=== PATIENT | male | born 1945 ===

== ENCOUNTER → 2019-01-23 16:38 | Outpatient (REF) | payer OTHER, SELFPAY ==
[2019-01-23 16:54] LABS: Add Manual Diff / Slide Review NO; Basophils Absolute Auto 100 /uL (0-100); Basophils Percent Auto 1.2 % (0-2); Eosinophils Absolute Auto 400 /uL (0-450); Eosinophils Percent Auto 4.6 % (2-4); Hematocrit 38.2 % (41-53); Lymphocytes Absolute Auto 3000 /uL (1100-4500); Lymphocytes Percent Auto 36.9 % (25-40); Mean Corpuscular Hemoglobin 29.3 PG (26-34); Mean Corpuscular Volume 86.1 fL (80-100); Monocytes Absolute Auto 400 /uL (0-900); Neutrophils Absolute Auto 4300 /uL (1500-7000); Neutrophils Percent Auto 52.3 % (50-75); Platelet Count 177 X10^3/uL (150-400); Red Blood Cell Count 4.43 X10^6/uL (4.5-5.9); Red Cell Distribution Width 15.2 % (11.6-14.8); White Blood Cell Count 8.1 X10^3/uL (4.5-11.0)
[2019-01-23 16:55] LABS: Alanine Aminotransferase 28 IU/L (21-72); Albumin 4.3 g/dL (3.5-5.0); Albumin Globulin Ratio 1.7 (1.0-2.8); Alkaline Phosphatase 70 U/L (38-126); Aspartate Aminotransferase 18 IU/L (17-59); BUN Creatinine Ratio 18.9 (6-22); Bilirubin Total 0.4 mg/dL (0.2-1.3); Blood Urea Nitrogen 17 mg/dL (9-20); Calcium 9.3 mg/dL (8.4-10.2); Carbon Dioxide 30 mmol/L (22-32); Chloride 102 mmol/L (98-107); Estimated Glomerular Filt Rate > 60.0 mL/min (>60); Globulin 2.6 g/dL (1.7-4.1); Glucose 134 mg/dL (80-110); HEMOLYSIS < 15 (0-50); Potassium 3.5 mmol/L (3.4-5.1); Sodium 140 mmol/L (137-145); Total Protein 6.9 g/dL (6.3-8.2)
[2019-01-23 17:25] LABS: TSH w/ Reflex to FT4 2.66 uIU/mL (0.47-4.68)
[2019-01-23 17:58] LABS: B Type Natriuretic Peptide < 100 (<100)
== END ==
LOC: LAB 16:38
PROVIDERS: Visit Provider Internal Medicine
DX: I10 Essential (primary) hypertension (principal); R60.0 Localized edema
CPT/HCPCS: 80053; 83880; 84443; 85025

== ENCOUNTER → 2019-02-04 14:33 | Outpatient (CLI) | payer OTHER, SELFPAY ==
--- NOTE | 2019-02-04 | DI.ECHO.S_ITS ---
[facility]---------+ [facility] +---------+ : : [address] : [place] : : : : [id number] : : : : Phone: [phone]---------+ Echocardiogram Report + + :Name: EFREN FITZGERALD Study Date: 02/04/2019 Height: 71 in : :[facility] Exam Location: [place] Weight: 202 lb : : Gender: Male BSA: 2.1 m2 : :: 1945 Age: 73 yrs BP: 130/70 mmHg: :Reason For Study: Hypertension : :Ordering Physician: Dr. Tate : :Nilo Performed By: Madelyn Page : + + Interpretation Summary Normal sinus rhythm. Normal LV size, wall thickness, wall motion and LV systolic function. EF is 60-65%. Severe biatrial enlargement; mild RV enlargement. Estimated PA systolic pressure is 35 mm Hg assuming RA pressure of 10 mm Hg. No significant valvular abnomalities. Mildly dilated ascending aorta (4 cm diameter) Compared to prior study 11/10/2018 LV is more dynamic. RV dilation is less prominent. LA enlargement progressed from moderately dilated to severely dilated. Procedure: A two-dimensional transthoracic echocardiogram with color flow and Doppler was performed. The study quality was technically adequate. Comparison is made with the echocardiogram of 11/10/2018. The heart rate ranged between 54-65 bpm during the study. Left Ventricle: The left ventricle is normal in size. There is normal left ventricular wall thickness. The ejection fraction is estimated to be 45-50%. Diastolic parameters suggest probable normal left ventricular diastolic function and normal filling pressures. Right Ventricle: The right ventricle is mildly dilated. The right ventricular systolic function is normal. Atria: Both atria are severely dilated. There is no Doppler evidence for an interatrial shunt. Mitral Valve: The mitral valve leaflets appear mildly thickened, but open well. There is mild mitral annular calcification. There is mild mitral regurgitation. Aortic Valve: The aortic valve is trileaflet. The aortic valve opens well. No aortic regurgitation is present. Tricuspid Valve: The tricuspid valve is normal in structure and function. There is mild tricuspid regurgitation. Right ventricular systolic pressure is estimated to be 25 mmHg plus the clinically estimated CVP which cannot be estimated on this exam. Pulmonic Valve: The pulmonic valve is not well visualized. There is trace pulmonic regurgitation. Great Vessels: The aortic root is normal size. The ascending aorta is mildly enlarged. The pulmonary artery is not well visualized, but is probably normal size. The inferior vena cava was not visualized. Pericardium/ Pleura There is no pericardial effusion. Can not rule out possible left sided pleural effusion. MMode/2D Measurements & Calculations LVIDd: 5.1 cm LVOT diam: 2.3 cm LVIDs: 3.1 cm Ao root diam: 3.7 cm FS: 39.0 % asc Aorta Diam: 4.0 cm EPSS: 0.30 cm IVSd: 0.94 cm LVPWd: 0.95 cm LV beckham. diameter/BSA (cm/m^2): 2.4 LV sys. diameter/BSA (cm/m^2): 1.5 LA A2 area: 30.1 cm2 RA long axis: 7.0 cm LA A4 area: 34.9 cm2 RA area: 29.5 cm2 LA length (vol): 7.2 cm RA vol: 105.9 ml LA vol: 123.8 ml RA : 50.0 ml/m2 LA vol index: 58.5 ml/m2 RVD1 (basal): 4.7 cm TAPSE: 2.6 cm Doppler Measurements & Calculations Ao V2 max: 130.1 cm/sec LVOT Max Bill: 83.7 cm/sec Ao V2 mean: 85.9 cm/sec LV V1 max P.8 mmHg Ao max P.8 mmHg LV V1 VTI: 18.9 cm Ao mean P.4 mmHg CANDIDA(I,D): 2.8 cm2 Ao V2 VTI: 27.5 cm CANDIDA(V,D): 2.6 cm2 sev ratio: 0.69 CANDIDA indexed to BSA (cm^2/m^2): 1.3 MV E max bill: 67.3 cm/sec TR max bill: 247.6 cm/sec MV A max bill: 63.6 cm/sec TR max P.5 mmHg MV E/A: 1.1 PA V2 max: 71.2 cm/sec Med Peak E' Bill: 9.1 cm/sec PA V2 mean: 44.6 cm/sec E/E' med: 7.4 PA mean P.94 mmHg Lat Peak E' Bill: 10.7 cm/sec PA Accel Time: 0.08 sec E/E' lat: 6.3 E/e' average: 6.9 MV dec time: 0.27 sec MV P1/2t: 80.4 msec MV P1/2t max bill: 68.7 cm/sec SV(LVOT): 76.8 ml MVA(P1/2t): 2.7 cm2 Electronically signed by: Jocelin Clark M.D. on Reading Physician:02/05/2019 03:32 AM
== END ==
LOC: ECHO 14:35 → AC 15:05 → ECHO 01-06 00:03
PROVIDERS: Visit Provider Internal Medicine
DX: I08.1 Rheumatic disorders of both mitral and tricuspid valves (principal); I77.810 Thoracic aortic ectasia; I10 Essential (primary) hypertension
CPT/HCPCS: 93306

== ENCOUNTER → 2019-05-01 12:14 | Outpatient (CLI) | payer OTHER, SELFPAY ==
--- NOTE | 2019-05-01 12:17 | DI.RAD.S_ITS ---
PROCEDURE: XR LUMBAR SPINE MIN 4V INDICATIONS: Post laminectomy syndrome TECHNIQUE: 5 views of the lumbar spine were acquired. COMPARISON: None. FINDINGS: Bones: 5 nonrib-bearing vertebrae are present. There is normal bony alignment except for slight convex leftward scoliosis centered at L1-L2. No vertebral body compression fractures. No suspicious bony lesions. Degenerative disc disease along the lumbosacral spine is mild to moderate in severity and best seen at L2-L3 and T12-L1 on the lateral projection. Moderate facet osteoarthritis is present from L3 inferiorly, with potential for mild to moderate foraminal stenosis most prominently present at the L3-L4 and especially L4-L5. Soft tissues: Overlying bowel gas pattern is normal. No suspicious soft tissue calcifications. Oblique images: No pars defects. IMPRESSION: No trauma found, slight convex leftward scoliosis centered at the upper lumbosacral spine. Disc disease is relatively mild in this patient but facet degeneration is present to the degraded spinal and foraminal stenosis may be present from L3 inferiorly. Dictated by: Chava Santana M.D. on 05/01/2019 at 14:37 Approved by: Chava Santana M.D. on 05/01/2019 at 14:39
== END ==
PROVIDERS: PCP Internal Medicine; Visit Provider Physical Medicine & Rehabilitation
DX: M96.1 Postlaminectomy syndrome, not elsewhere classified (principal); M51.15 Intervertebral disc disorders with radiculopathy, thoracolumbar region; M51.16 Intervertebral disc disorders with radiculopathy, lumbar region; M48.061 Spinal stenosis, lumbar region without neurogenic claudication; M47.27 Other spondylosis with radiculopathy, lumbosacral region; G03.9 Meningitis, unspecified; S32.019A Unspecified fracture of first lumbar vertebra, initial encounter for closed fracture
CPT/HCPCS: 72110